=== PATIENT | female | born 1960 | race African-American/Black ===

== ENCOUNTER 2020-08-04 19:00 | Inpatient (IN) | payer MEDICAID ==
[~2020-08-04] VITALS: Ht 167.6 cm; Wt 63.1 kg
[2020-08-04 20:34] LABS: Basophils # (auto) 0.1 10 ^3/uL (0-0.2); Eosinophils # (auto) 0 10 ^3/uL (0-0.8); Lymphocytes # (auto) 1.2 10 ^3/uL (0.4-5.4); Monocytes # (auto) 0.2 10 ^3/uL (0-1.3); Neutrophils # (auto) 2.4 10 ^3/uL (1.6-8.6); White Blood Cell 3.9 10^3/uL (4.4-10.8)
[2020-08-04 20:36] LABS: Basophils % (auto) 2.3 % (0.0-2.0); Eosinophils % (auto) 1.1 % (0.0-7.0); Hematocrit 41.7 % (36.0-46.0); Hemoglobin 13.8 g/dL (12.2-16.2); INR 1.72 (0.9-1.15); Lymphocytes % (auto) 30.7 % (10.0-50.0); Mean Corpuscular Hemoglobin 28.9 pg (28.0-32.0); Mean Corpuscular Hgb Conc. 33.1 g/dL (32.0-36.0); Mean Corpuscular Volume 87.5 fL (80.0-100.0); Monocytes % (auto) 4.7 % (0.0-12.0); Neutrophils % (auto) 61.2 % (37.0-80.0); Nucleated Red Blood Cells % 0.4 %; Partial Thromboplastin Time 38.7 sec (23.0-31.2); Platelet Count (auto) 477 10^3/uL (140-450); Red Blood Cells 4.76 10^6/uL (4.0-5.20); Red Cell Distribution Width 17.2 % (11.8-14.3)
[2020-08-04 20:41] LABS: Albumin 2.6 g/dL (3.4-5.0); Anion Gap 5 (5-15); BUN/Creatinine Ratio 27.5; Blood Urea Nitrogen 28 mg/dL (7-18); Calcium 8.5 mg/dL (8.5-10.1); Carbon Dioxide 28 mmol/L (21-32); Chloride 109 mmol/L (98-107); GFR African American 72 mL/min; GFR Non-African American 59 mL/min; Glucose 96 mg/dL (74-106); Potassium 3.9 mmol/L (3.5-5.1); Sodium 142 mmol/L (136-145)
[2020-08-04 20:55] LABS: Alkaline Phosphatase 221 U/L (45-117); Aspartate Aminotransferase 62 U/L (15-37); Bilirubin, Total 0.6 mg/dL (0.2-1.0); Total Protein 6.1 g/dL (6.4-8.2)
[2020-08-04 21:07] LABS: Alanine Aminotransferase 36 U/L (13-56)
[2020-08-04] MEDS ORDERED: MORPHINE SULFATE 4 MG/ML SYR/VIAL IV ONE (23:00)
[2020-08-04] MEDS ORDERED: ONDANSETRON HCL 4 MG/2 ML VIAL IV ONE (23:00)
[2020-08-05] VITALS (7 sets, daily range): BP systolic 95–148; BP diastolic 64–105
[2020-08-05] MEDS ORDERED: FUROSEMIDE 20 MG/2 ML VIAL IV ONE (00:45)
[2020-08-05] MEDS ORDERED: TEMAZEPAM 15 MG CAP PO PRN (02:15)
[2020-08-05] MEDS ORDERED: ONDANSETRON HCL 4 MG/2 ML VIAL IV PRN (02:15)
[2020-08-05] MEDS ORDERED: ACETAMINOPHEN 325 MG TAB PO PRN (02:15)
[2020-08-05] MEDS ORDERED: DOCUSATE SOD 100 MG CAP PO PRN (02:15)
--- NOTE | 2020-08-05 03:42 | NUR ---
Patient arrived to the unit. Patient awake and alert. A&Ox4. Patient oriented to room, bed, call light, and policies and procedures. Patient verbalized understanding. Safety measures maintained by keeping the bed locked in lowest position, 2 side rails up, personal items and call light within reach. Will continue to monitor.
[2020-08-05] MEDS: HYDROcodone-ACET 5/325MG TAB PO PRN ×3 (04:36→16:56)
[2020-08-05] MEDS ORDERED: CARV3.1240 PO (05:38)
[2020-08-05] MEDS ORDERED: FURO20TA3 PO (05:38)
[2020-08-05] MEDS ORDERED: POTA10TA51 PO (05:38)
[2020-08-05] MEDS ORDERED: APIX2.5T PO (05:38)
[2020-08-05] MEDS ORDERED: HYDR-4833 PO ×2 (05:38→18:29)
[2020-08-05 06:18] LABS: Eosinophils # (auto) 0 10 ^3/uL (0-0.8); Eosinophils % (auto) 1.2 % (0.0-7.0); Lymphocytes # (auto) 1.8 10 ^3/uL (0.4-5.4); Monocytes # (auto) 0.3 10 ^3/uL (0-1.3); Neutrophils # (auto) 1.6 10 ^3/uL (1.6-8.6); Nucleated Red Blood Cells % 0.8 %; White Blood Cell 3.8 10^3/uL (4.4-10.8)
[2020-08-05 06:21] LABS: Basophils # (auto) 0 10 ^3/uL (0-0.2); Basophils % (auto) 1.2 % (0.0-2.0); Hematocrit 42.7 % (36.0-46.0); Lymphocytes % (auto) 47.9 % (10.0-50.0); Mean Corpuscular Hemoglobin 28.8 pg (28.0-32.0); Mean Corpuscular Hgb Conc. 32.8 g/dL (32.0-36.0); Mean Corpuscular Volume 87.9 fL (80.0-100.0); Neutrophils % (auto) 42.7 % (37.0-80.0); Platelet Count (auto) 466 10^3/uL (140-450); Red Blood Cells 4.85 10^6/uL (4.0-5.20); Red Cell Distribution Width 17.5 % (11.8-14.3)
[2020-08-05 06:41] LABS: Potassium 3.4 mmol/L (3.5-5.1)
[2020-08-05 06:45] LABS: BUN/Creatinine Ratio 25.5; Calcium 8.9 mg/dL (8.5-10.1)
--- NOTE | 2020-08-05 06:50 | NUR ---
MRSA swab sent down to lab.
[2020-08-05] MEDS: MORPHINE SULF INJ 2 MG/ML SYRINGE 1ML IV PRN ×2 (08:04→15:15)
[2020-08-05] MEDS: LORazepam 0.5 MG TAB PO PRN ×2 (08:04→15:15)
--- NOTE | 2020-08-05 08:22 | NUR ---
Opening shift note: Patient awake lying supine A&O X4. Respirations even and unlabored complains of pain in the back 08/18. Will medicate per orders. Updated on plan of care. Bed alarm on, call light within reach will continue to monitor. Signed: 08/05/20 at 824 by SN KHOA <Co-Signature Required> Co-Signed: 08/05/20 at 824 by RUSTY FLOWER RN RN
[2020-08-05] MEDS ORDERED: FUROSEMIDE 40 MG/4 ML VIAL IV SCH (10:00)
[2020-08-05] MEDS ORDERED: APIXABAN 2.5 MG TAB PO SCH (11:15)
--- NOTE | 2020-08-05 11:18 | NUR ---
CALL FROM MD. Jadiel NUNEZ: ORDERS RECEIVED. WILL CONTINUE TO MONITOR.
--- NOTE | 2020-08-05 15:48 | NUR ---
MD Jadiel NUNEZ ROUNDING: PATIENT WISHES TO GO HOME. PLANS FOR D/C PENDING PHYSICAL THERAPY EVAL FOR HOME SAFETY.
[2020-08-05] MEDS ORDERED: FURO1TAB31 PO ×2 (18:26→18:29)
--- NOTE | 2020-08-05 18:28 | NUR ---
PER DR. Jadiel NUNEZ HOME HEALTH FOR PHYSICAL THERAPY IS REQUESTED THROUGH [facility] AND WILL BEING WITHIN 48-72 HOURS.
--- NOTE | 2020-08-05 18:40 | NUR ---
CARE ENDORSED TO NOC RN.
--- NOTE | 2020-08-05 18:40 | NUR ---
SPOKE WITH FAMILY MANOHAR: ABLE TO REACH CONTACT MANOHAR, HE REPORTED HE WAS IN [place] AND WOULD "CALL AND TEXT HIS OTHER TWO BROTHERS SHE LIVES WITH TO COME PICK HER UP."
--- NOTE | 2020-08-05 19:52 | NUR ---
DISCHARGE All patients belongings with patient, patient transferred via wheelchair down to main lobby with no incidence.
--- NOTE | 2020-08-06 14:36 | NUR ---
leaf conditioner 08/05/2020 Per consult home health safety edilson, home physical therapy. No call or page on this patient. order sent to [facility] and to [facility] for Auth. Waiting for call back now. Addendum: 08/06/20 at 1437 by Rubia Stallworth Amended: Links added.
--- NOTE | 2020-08-06 15:17 | NUR ---
re-assessment Per Irlanda at [facility] she has already authed [facility] who patient is on service with. Auth #[id number]. [facility] has been notified. Addendum: 08/06/20 at 1518 by Rubia CAMARA Amended: Links added.
== END 2020-08-05 19:45 | disposition home health service (06) | DRG 347 ==
LOC: ER 19:00 → EDBD 19:00 → TELE 19:01 → TELE-WESTW 08-05 03:44
PROVIDERS: ADMIT Hospitalist; ATTEND Hospitalist
DX: M48.56XA Collapsed vertebra, not elsewhere classified, lumbar region, initial encounter for fracture (principal); I50.43 Acute on chronic combined systolic (congestive) and diastolic (congestive) heart failure; I11.0 Hypertensive heart disease with heart failure; Z82.49 Family history of ischemic heart disease and other diseases of the circulatory system; M54.10 Radiculopathy, site unspecified; Z82.3 Family history of stroke; Z86.73 Personal history of transient ischemic attack (TIA), and cerebral infarction without residual deficits; Y93.89 Activity, other specified; Y92.89 Other specified places as the place of occurrence of the external cause; Y99.8 Other external cause status
CPT/HCPCS: 36415; 71045; 72131; 80048; 80053; 83880; 84484; 85025; 85610; 85730; 87081; 93005; 96374; 96375; G0378; J2405